=== PATIENT | female | born 2005 | race Two or more races ===

== ENCOUNTER 2025-01-13 18:56 | Emergency (ER) | payer OTHER ==
[~2025-01-13] VITALS: Ht 154.9 cm; Wt 60.5 kg
--- NOTE | 2025-01-13 19:24 | ED.PDOC ---
History of Present Illness(SKN HPI Comments PATIENT C/O THIRD RIGHT DIGIT TOE PAIN. POSSIBLY FROM INSECT BITE. 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 History Family History Family History: Reviewed,noncontributory to illness Social History Smoker: Non-Smoker Alcohol: Denies ETOH Use Drugs: Denies Drug Use Constitutional: denies: chills, diaphoresis, fatigue, fever, malaise, sweats, weakness, others EENTM: denies: blurred vision, double vision, ear bleeding, ear discharge, ear drainage, ear pain, ear ringing, eye pain, eye redness, hearing loss, mouth pain, mouth swelling, nasal discharge, nose bleeding, nose congestion, nose pain, photophobia, tearing, throat pain, throat swelling, voice changes, others Respiratory: denies: cough, hemoptysis, orthopnea, SOB at rest, shortness of breath, SOB with excertion, stridor, wheezing, others Cardiovascular: denies: chest pain, dizzy spells, diaphoresis, Dyspnea on exertion, edema, irregular heart beat, left arm pain, lightheadedness, palpitations, PND, syncope, others Gastrointestinal: denies: abdomen distended, abdominal pain, blood streaked bowels, constipated, diarrhea, dysphagia, difficulty swallowing, hematemesis, melena, nausea, poor appetite, poor fluid intake, rectal bleeding, rectal pain, vomiting, others Genitourinary: denies: abnormal vagina bleeding, burning, dyspareunia, dysuria, flank pain, frequency, hematuria, incontinence, pain, , vagina discharge, urgency, others Neurological: denies: dizziness, fainting, headache, left sided numbness, left sided weakness, numbness, paresthesia, pre-existing deficit, right sided num bness, right sided weakness, seizure, speech problems, tingling, tremors, weakness, others Musculoskeletal: denies: back pain, gout, joint pain, joint swelling, muscle pain, muscle stiffness, neck pain, others Integumetry: reports: wounds (RIGHT FOOT TOE); denies: bruises, change in color, change in hair/nails, dryness, laceration, lesions, lumps, rash, others Allergic/Immunocompromised: denies: Difficulty Healing, Frequent Infections, Hives, Itching, others Hematologic/Lymphatic: denies: anemia, blood clots, easy bleeding, easy bruising, swollen glands, others Endocrine: denies: excessive hunger, excessive sweating, excessive thirst, excessive urination, flushing, intolerance to cold, intolerance to heat, unexplained weight gain, unexplained weight loss, others Psychiatric: denies: anxiety, bipolar disorder, depression, hopeless, panic disorder, schizophrenia, sleepless, suicidal, others Physical Exam General Appearance: No Apparent Distress, Normal HEENT: Pharynx Normal Neck: Full Range of Motion, Non-Tender Respiratory: Lungs Clear, No Respiratory Distress, Normal Breath Sounds Cardiovascular: No Murmur, Normal Peripheral Pulses, Regular Rate/Rhythm Breast Exam: Deferred Gastrointestinal: Non Tender, Soft Genitalia: Deferred Pelvic: Deferred Rectal: Deferred Extremities: Normal capillary refill, Normal inspection, Normal range of motion, No pedal edema Musculoskeletal : Apperance: Normal Neurologic: Alert, No Motor Deficits, Normal Affect, Normal Mood, No Sensory Deficits Cerebellar Function: Normal Reflexes: Normal Skin: Dry, Normal Color, Warm, Wounds (RIGHT FOOT 3RD DIGIT NOTED PINPOINT PUNCTURE W/O ERYTHEMA OR DRANAGE, + CMS) Lymphatic: No Adenopathy Was a procedure done? Was a procedure done?: No Differential Diagnosis (INTG) Differential Diagnosis: Cellulitis, Hematoma, Insect Envenomation, Puncture Wound Differential Diagnosis: Abscess X-Ray, Labs, Meds, VS Vital Signs Date Time Temp Pulse Resp B/P (MAP) Pulse Ox O2 Delivery O2 Flow Rate FiO2 01/13/25 20:03 98.6 89 18 135/80 (98) 98 98.6 01/13/25 20:03 89 18 98 Room Air 01/13/25 19:15 98.6 89 18 135/80 (98) 98 98.6 X-Ray, Labs, Meds, VS Comment Patient given ice to the extremity and ketorolac 30 mg IM reports improvement in pain requested discharge at this time. Script child of ibuprofen advised take medication as prescribed side effects discussed. Advised on ice and elevation. Follow up with your primary care provider and to three days as necessary your returns precautions discussed patient indicates understanding and agrees with discharge plan of care. Time of 1ST Reevaluation: 19:21 Reevaluation 1ST: Unchanged Time of 2ND Reevaluation: 20:10 Reevaluation 2ND: Improved Patient Education/Counseling: Diagnosis, Treatment, Prognosis, Need For Follow Up Family Education/Counseling: No Family Present SEPSIS Sepsis Screen Vital Signs Date Time Temp Pulse Resp B/P (MAP) Pulse Ox O2 Delivery O2 Flow Rate FiO2 01/13/25 20:03 98.6 89 18 135/80 (98) 98 98.6 01/13/25 20:03 89 18 98 Room Air 01/13/25 19:15 98.6 89 18 135/80 (98) 98 98.6 Departure 1 Departure Time of Disposition: 20:14 Impression: Primary Impression: Insect bite Qualified Codes: S90.464A - Insect bite (nonvenomous), right lesser toe(s), initial encounter; W57.XXXA - Bitten or stung by nonvenomous insect and other nonvenomous arthropods, initial encounter Disposition: 01 HOME / SELF CARE / HOMELESS Condition: Stable e-Prescriptions Ibuprofen (Ibuprofen) 600 Mg Tab 600 MG PO TID PRN for 4 Days, #12 TAB Prov: BARRINGTON WEBSTER 01/13/25 Discharged With: Self Critical Care Note Critical Care Time?: No Stability Stability form required: No BARRINGTON WEBSTER Jan 13, 2025 19:24
[2025-01-13] MEDS: KETOROLAC TROMETH 60MG/2ML VIAL IM ONE (19:51)
[2025-01-13 20:03] VITALS: BP 135/80; PULSE 89; RESP 18; TEMP 98.6; O2SAT 98
[2025-01-13] MEDS ORDERED: IBUP-1454 PO (20:15)
== END 2025-01-13 20:30 | disposition home or self-care (01) ==
LOC: ER 18:56
DX: S90.464A Insect bite (nonvenomous), right lesser toe(s), initial encounter (principal); W57.XXXA Bitten or stung by nonvenomous insect and other nonvenomous arthropods, initial encounter; Y93.89 Activity, other specified; Y92.89 Other specified places as the place of occurrence of the external cause; Y99.8 Other external cause status
CPT/HCPCS: 96372; 99283; J1885